=== PATIENT | male | born 1950 | race Caucasian/White ===

== ENCOUNTER 2020-01-08 18:37 | Inpatient (IN) | payer BC ==
[~2020-01-08] VITALS: Ht 180.3 cm; Wt 94.7 kg
[~2020-01-08 18:37] MED LIST: CRESTOR; FLEXERIL; GLIPIZIDE 10 MG10 MG PO; LISINOPRIL10 MG; LOPID; LOTRISONE CREAM15 GM TP; METFORMIN; MOBIC15 MG; NIZORAL120 ML TP; NORCO 5-325 TA1 EACH PO; OMEPRAZOLE; PERCOCET 5-3251 EACH PO; TAMSULOSIN HCL0.4 M1 PO; TAMSULOSIN HCL0.4 MG PO; ZOFRAN ODT4 MG PO
[2020-01-08] MEDS ORDERED: CHILDREN'S ASPI81 M1 PO (18:45)
[2020-01-08] MEDS ORDERED: CLOPIDOGREL75 MG PO (18:45)
[2020-01-08] MEDS ORDERED: GLUCOTROL10 MG PO (18:45)
[2020-01-08] MEDS ORDERED: COZAAR 25 MG TA25 M1 PO (18:46)
[2020-01-08] MEDS ORDERED: NIZORAL120 ML TOP (18:46)
[2020-01-08] MEDS ORDERED: METFORMIN HCL500 M3 PO (18:47)
[2020-01-08] MEDS ORDERED: PRILOSEC OTC20 MG PO (18:48)
[2020-01-08] MEDS ORDERED: NITROSTAT0.4 M1 SUBLING (18:48)
[2020-01-08] MEDS ORDERED: CRESTOR40 MG PO (18:49)
[2020-01-08] MEDS ORDERED: ACTOS15 MG PO (18:49)
[2020-01-08 18:53] LABS: ABSOLUTE NEUTROPHILS 3.8 thou/uL (1.4-8.2); HEMATOCRIT 45.9 % (42.0-52.0); HEMOGLOBIN 15.7 gm/dL (14.0-18.0); LYMPHOCYTES 34.3 % (24.0-44.0); MCH 29.1 pg (26.0-34.0); MCHC 34.3 g/dL (28.0-37.0); MCV 84.9 fL (80.0-100.0); MONOCYTES 8.8 % (1.0-8.0); PLATELET COUNT 118 thou/uL (150-400); POLYS 53.9 % (36.0-66.0); RDW 13.5 % (10.5-14.5); WBC 7.1 thou/uL (4.0-11.0)
[2020-01-08 19:02] LABS: ANION GAP 10 mmol/L (7-16); BUN 23 mg/dL (7-18); CALCIUM 9.4 mg/dL (8.5-10.1); CHLORIDE 101 mmol/L (98-107); CO2 27 mmol/L (21-32); CREATININE 0.8 mg/dL (0.7-1.3); GLUCOSE 285 mg/dL (74-106); POTASSIUM 3.7 mmol/L (3.5-5.1); SODIUM 138 mmol/L (136-145)
[2020-01-08 19:12] LABS: ALBUMIN 3.9 g/dL (3.4-5.0); SGOT 16 U/L (15-37); SGPT 22 U/L (30-65); TOTAL BILIRUBIN 0.8 mg/dL (<0.1-1.0); TOTAL PROTEIN 7.1 g/dL (6.4-8.2); TROPONIN-I <0.06 ng/mL (<0.06)
[2020-01-08 21:24] VITALS: BP 127/76
[2020-01-08 21:39] VITALS: BP 120/73
[2020-01-08] MEDS ORDERED: KETOCONAZOLE15 GM TOP (22:52)
[2020-01-08 23:00] VITALS: BP 120/73
[2020-01-09 00:45] LABS: URINE BILIRUBIN NEGATIVE (Negative); URINE BLOOD NEGATIVE (Negative); URINE CLARITY CLEAR; URINE COLOR YELLOW; URINE GLUCOSE-RANDOM* 2+ (Negative); URINE KETONES NEGATIVE (Negative); URINE LEUKOCYTES NEGATIVE (Negative); URINE NITRITE NEGATIVE (Negative); URINE PROTEIN (DIPSTICK) NEGATIVE (Negative); URINE UROBILINOGEN 0.2 E.U./dl (0.2-1.0)
--- NOTE | 2020-01-09 03:34 | NUR ---
Pt explained by the RN the treatment plan and plan of care, abx education provided verbally, and patient expressed understanding of treatment. Pt is resting comfortably at this time, no c/o dizziness or syncopal symptoms. Pt is tolerating clear liquid diet well. Will continue to monitor.
[2020-01-09 06:03] LABS: HEMATOCRIT 40.4 % (42.0-52.0); MCH 28.8 pg (26.0-34.0); MCHC 33.6 g/dL (28.0-37.0); MCV 85.5 fL (80.0-100.0); RBC 4.73 mil/uL (4.50-6.00); RDW 13.4 % (10.5-14.5); WBC 6.6 thou/uL (4.0-11.0)
[2020-01-09 06:07] LABS: HEMOGLOBIN 13.6 gm/dL (14.0-18.0)
[2020-01-09 06:08] VITALS: BP 142/85
[2020-01-09 06:11] VITALS: BP 139/77
[2020-01-09 06:15] VITALS: BP 157/84
[2020-01-09 06:18] LABS: ANION GAP 7 mmol/L (7-16); BUN 15 mg/dL (7-18); CALCIUM 7.5 mg/dL (8.5-10.1); CHLORIDE 107 mmol/L (98-107); CHOLESTEROL 102 mg/dL (<200); CO2 26 mmol/L (21-32); CREATININE 0.6 mg/dL (0.7-1.3); GLUCOSE 171 mg/dL (74-106); HDL CHOLESTEROL 23 mg/dL (>40); LDL CHOLESTEROL 25 mg/dL (<100); POTASSIUM 3.3 mmol/L (3.5-5.1); SODIUM 140 mmol/L (136-145); TC:HDL 4.4 Ratio (Not establshd); TRIGLYCERIDE 270 mg/dL (<150); VLDL 54 mg/dL (<40)
[2020-01-09 06:23] LABS: SERUM ASSESSMENT Clear
[2020-01-09] MEDS ORDERED: TRICOR48 MG PO (06:37)
[2020-01-09 07:29] VITALS: BP 124/81
--- NOTE | 2020-01-09 09:12 | EKG ---
[facility] [place] [address] ELECTROCARDIOGRAM REPORT Name: HUNTER VILLASENOR Room #: 355- ADM IN M.R.#: [id number] Admission: 01/08/20 Attend Phys: Ephraim Montanez MD Discharge: Date of : 50 Report #: [id number] THIS REPORT FOR: cc: Nguyen Solorzano K. Steven DO Lundgren, Craig H. 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 /EPI
--- NOTE | 2020-01-09 09:55 | 2DMMODE ---
[facility] [place] [address] 2 D/M-MODE ECHOCARDIOGRAM Name: HUNTER VILLASENOR Radha Room #: 355-P ADM IN M.R.#: [id number] Admission: 01/08/20 Attend Phys: Ephraim Montanez MD Discharge: Date of : 50 Report #: [id number] THIS REPORT FOR: cc: Nguyen Solorzano K. Steven DO Lammoglia, Francisco J. MD ~ APPROVED REPORT Study performed: 01/09/2020 09:07:42 EXAM: Comprehensive 2D, Doppler, and color-flow Echocardiogram Patient Location: Bedside Room #: [facility] Status: routine BSA: 2.13 HR: 58 bpm BP: 124/81 mmHg Rhythm: Bradycardia Other Information Study Quality: Good Indications Diabetes CAD Syncope Hypertension/HDD 2D Dimensions RVDd: 29.39 mm IVSd: 10.86 (7-11mm) LVOT Diam: 23.35 (18-24mm) LVDd: 49.60 mm PWd: 11.31 (7-11mm) Ascending Ao: 34.41 (22-36mm) LVDs: 29.76 (25-40mm) Aortic Root: 31.88 mm IVC: 18.00 mm Volumes Left Atrial Volume (Systole) Single Plane 4CH: 34.74 mL Single Plane 2CH: 33.66 mL LA ESV Index: 17.00 mL/m2 Aortic Valve AoV Peak Jason.: 1.19 m/s AO Peak Gr.: 5.66 mmHg LVOT Max P.48 mmHg [facility] [address] [place] [address] 2 D/M-MODE ECHOCARDIOGRAM Name: HUNTER VILLASENOR Room #: 355-P [facility] IN .R.#: [id number] Admission: 01/08/20 Attend Phys: Mary Ann Moore Discharge: Date of : 50 Report #: [id number] LVOT Max V: 1.06 m/s MILA Vmax: 3.81 cm2 Mitral Valve E/A Ratio: 1.2 MV Decel. Time: 284.55 ms MV E Max Jason.: 0.78 m/s MV A Jason.: 0.65 m/s MV PHT: 82.52 ms IVRT: 138.41 ms Pulmonary Valve PV Peak Jason.: 1.09 m/s PV Peak Gr.: 4.75 mmHg Pulmonary Vein P Vein S: 0.60 m/s P Vein A: 0.27 m/s P Vein D: 0.29 m/s P Vein A Dur.: 101.5 msec P Vein S/D Ratio: 2.07 Left Ventricle The left ventricle is normal size. There is normal LV segmental wall motion. There is normal left ventricular wall thickness. Left ventricular systolic function is normal. The left ventricular ejection fraction is within the normal range. LVEF is 55-60%. Grade II - pseudonormal filling dynamics. Right Ventricle The right ventricle is normal size. The right ventricular systolic function is normal. Atria The left atrium size is normal. The right atrium size is normal. Aortic Valve The aortic valve is normal in structure. Trace aortic regurgitation. There is no aortic valvular stenosis. Mitral Valve The mitral valve is normal in structure. There is no mitral valve regurgitation noted. No evidence of mitral valve stenosis. Tricuspid Valve The tricuspid valve is normal in structure. There is no tricuspid valve regurgitation noted. [facility] [address] [place] [address] 2 D/M-MODE ECHOCARDIOGRAM Name: HUNTER VILLASENOR Room #: 355-P [facility] IN .R.#: [id number] Admission: 01/08/20 Attend Phys: Mary Ann Moore Discharge: Date of : 50 Report #: [id number] Pulmonic Valve The pulmonary valve is normal in structure. There is no pulmonic valvular regurgitation. Great Vessels The aortic root is normal in size. IVC is normal in size and collapses >50% with inspiration. Pericardium There is no pericardial effusion. <Conclusion> The left ventricle is normal size. LVEF is 55-60%. The aortic valve is normal in structure. Trace aortic regurgitation. The mitral valve is normal in structure. The tricuspid valve is normal in structure. The pulmonary valve is normal in structure. The aortic root is normal in size. There is no pericardial effusion. <ELECTRONICALLY SIGNED> By: Hola Herrera MD 01/09/20 0954 3 3 Hola Herrera MD /INF
[2020-01-09 15:41] VITALS: BP 139/82
[2020-01-09 20:00] VITALS: BP 131/86
[2020-01-10 00:07] LABS: GLYCOHEMOGLOBIN (HGB A1C) 9.5 % (4.8-5.6)
[2020-01-10 03:55] VITALS: BP 152/81
[2020-01-10 03:57] VITALS: BP 139/84
[2020-01-10 03:59] VITALS: BP 139/84
[2020-01-10 07:20] VITALS: BP 130/76
[2020-01-10] MEDS ORDERED: CIPRO500 M1 PO (10:26)
[2020-01-10] MEDS ORDERED: METRONIDAZOLE500 M4 PO (10:26)
[2020-01-10 11:38] VITALS: BP 130/76
--- NOTE | 2020-01-10 14:06 | NUR ---
PATIENT DENIES FEELINGS OF CHEST PAIN, DIZZINESS, OR LIGHTHEADEDNESS. DIET RESUMED. DENIES NAUSEA. ONE BOWEL MOVEMENT OBTAINED AND SENT TO LAB THIS SHIFT. UP AD JOSE MANUEL WITH STEADY BALANCED GAIT. PATIENT DISCHARGED HOME TO SELF CARE. VERBALIZES ACCURATE UNDERSTANDING OF DISCHARGE EDUCATION.
== END 2020-01-10 14:07 | disposition home or self-care (01) | DRG 392 ==
LOC: ER 18:37 → EROBS 21:18 → 3W 21:18
PROVIDERS: Emergency Medicine Emergency Medical Services; Nurse Practitioner Family; ADMIT Hospitalist
DX: K52.9 Noninfective gastroenteritis and colitis, unspecified (principal); K21.9 Gastro-esophageal reflux disease without esophagitis; J40 Bronchitis, not specified as acute or chronic; E11.9 Type 2 diabetes mellitus without complications; E78.5 Hyperlipidemia, unspecified; F17.210 Nicotine dependence, cigarettes, uncomplicated; I25.10 Atherosclerotic heart disease of native coronary artery without angina pectoris; E86.0 Dehydration; E27.9 Disorder of adrenal gland, unspecified; E87.6 Hypokalemia; Z79.82 Long term (current) use of aspirin; Z79.899 Other long term (current) drug therapy; Z86.14 Personal history of Methicillin resistant Staphylococcus aureus infection; Z87.442 Personal history of urinary calculi; Z85.46 Personal history of malignant neoplasm of prostate; Z95.5 Presence of coronary angioplasty implant and graft; Z71.6 Tobacco abuse counseling
CPT/HCPCS: 10879

== ENCOUNTER 2020-02-24 16:54 | Emergency (ER) | payer BC ==
[~2020-02-24] VITALS: Ht 180.3 cm; Wt 95.3 kg
[~2020-02-24 16:54] MED LIST changes: +ACTOS15 MG PO; +CHILDREN'S ASPI81 M1 PO; +CIPRO500 M1 PO; +CLOPIDOGREL75 MG PO; +COZAAR 25 MG TA25 M1 PO; +CRESTOR40 MG PO; +GLUCOTROL10 MG PO; +KETOCONAZOLE15 GM TOP; +METFORMIN HCL500 M3 PO; +METRONIDAZOLE500 M4 PO; +NITROSTAT0.4 M1 SUBLING; +NIZORAL120 ML TOP; +PRILOSEC OTC20 MG PO; +TRICOR48 MG PO
[2020-02-24 17:09] LABS: URINE BILIRUBIN NEGATIVE (Negative); URINE BLOOD 3+ (Negative); URINE CLARITY CLOUDY; URINE COLOR RED; URINE GLUCOSE-RANDOM* TRACE (Negative); URINE KETONES TRACE (Negative); URINE PROTEIN (DIPSTICK) 3+ (Negative)
[2020-02-24 17:11] LABS: URINE LEUKOCYTES-REFLEX 1+ (Negative); URINE NITRITE-REFLEX POSITIVE (Negative)
[2020-02-24 17:28] LABS: CASTS None Seen /LPF (None Seen); CRYSTALS None Seen /LPF (None Seen); SQUAMOUS None Seen /LPF (0-3); URINE RBC >20 Many /HPF (0-2)
[2020-02-24 17:29] LABS: BACTERIA-REFLEX 1-9 Few /HPF (None Seen); URINE WBC-REFLEX 0-5 Rare /HPF (0-5)
[2020-02-24 17:51] LABS: ABSOLUTE NEUTROPHILS 4.7 thou/uL (1.4-8.2); BASOPHILS 0.9 % (0.0-2.0); EOSINOPHILS 1.8 % (0.0-3.0); HEMATOCRIT 45.1 % (42.0-52.0); HEMOGLOBIN 15.7 gm/dL (14.0-18.0); LYMPHOCYTES 26.5 % (24.0-44.0); MCH 29.8 pg (26.0-34.0); MCHC 34.9 g/dL (28.0-37.0); MCV 85.5 fL (80.0-100.0); MONOCYTES 8.9 % (1.0-8.0); PLATELET COUNT 118 thou/uL (150-400); POLYS 61.9 % (36.0-66.0); RBC 5.28 mil/uL (4.50-6.00); RDW 13.8 % (10.5-14.5); WBC 7.5 thou/uL (4.0-11.0)
[2020-02-24 18:04] LABS: CALCIUM 8.8 mg/dL (8.5-10.1); CREATININE 0.9 mg/dL (0.7-1.3)
[2020-02-24 18:05] LABS: INR 1.1; PROTIME 10.8 Seconds (9.3-11.4)
[2020-02-24 18:09] LABS: ALBUMIN 4.1 g/dL (3.4-5.0); TOTAL BILIRUBIN 0.8 mg/dL (<0.1-1.0); TOTAL PROTEIN 7.5 g/dL (6.4-8.2)
[2020-02-24] MEDS ORDERED: KEFLEX500 M1 PO (18:58)
[2020-02-24] MEDS ORDERED: JANUVIA100 MG PO (19:01)
[2020-02-24 19:04] VITALS: BP 150/87
== END 2020-02-24 19:07 | disposition home or self-care (01) ==
LOC: ER 16:54
PROVIDERS: Physician Assistant
DX: N39.0 Urinary tract infection, site not specified (principal); R31.9 Hematuria, unspecified; I25.10 Atherosclerotic heart disease of native coronary artery without angina pectoris; K21.9 Gastro-esophageal reflux disease without esophagitis; F17.210 Nicotine dependence, cigarettes, uncomplicated; Z79.899 Other long term (current) drug therapy; Z79.82 Long term (current) use of aspirin